=== PATIENT | male | born 1945 | race Caucasian/White ===

== ENCOUNTER 2017-02-28 10:16 | Emergency (ER) | payer OTHER ==
[~2017-02-28] VITALS: Wt 77.1 kg
[~2017-02-28 10:16] MED LIST: CIPROFLOXACIN500 MG PO; FLAGYL500 M1 IV; FLEXERIL10 MG PO; KEFLEX500 MG PO; NEURONTIN300 MG PO; TRAMADOL HCL50 MG PO; VICODIN 5/500 505 MG PO
[2017-02-28] MEDS ORDERED: LISINOPRIL10 M1 PO (10:25)
[2017-02-28] MEDS ORDERED: ZOFRAN ODT4 MG SL (12:11)
[2017-02-28 12:20] VITALS: BP 143/78
== END 2017-02-28 12:30 | disposition home or self-care (01) ==
LOC: ED 10:16
DX: R11.0 Nausea (principal); R63.0 Anorexia; F41.9 Anxiety disorder, unspecified; R42 Dizziness and giddiness; R19.7 Diarrhea, unspecified; I10 Essential (primary) hypertension; R07.89 Other chest pain; F17.200 Nicotine dependence, unspecified, uncomplicated; Z79.899 Other long term (current) drug therapy

== ENCOUNTER 2017-03-04 10:40 | Inpatient (IN) | payer OTHER ==
[~2017-03-04] VITALS: Ht 170.2 cm; Wt 77.1 kg
--- NOTE | ~2017-03-04 | CON ---
[place], [place] REPORT OF CONSULTATION NAME: LARRY MCCOY UNIT #: [id number] ROOM: 506 DOCTOR: EPHRAIM WHITT BIRTHDATE: [birth year] DOS: 03/06/2017 HISTORY OF PRESENT ILLNESS: This is a 71-year-old male who presents to the Emergency Department complaining of anxiety and depression and being overly nervous, worsening over the last couple of weeks, stating he is waking up "feeling sweaty, feeling lightheaded almost passed out, headaches, blurred vision, anxiety, nervousness, tremors, loss of appetite." He denies fevers and chills. He was admitted to the floor to rule out medical. PAST MEDICAL HISTORY: Diabetes, hypertension, neuropathy. MENTAL STATUS: He is alert and oriented to person, place, time. Mood fairly euthymic with some underlying anxiety. Affect was appropriate. No overt signs of auditory or visual hallucinations, delusions or paranoia. My only concern is when I started talking to him about medications and stuff, he says "well I am not going to get it." When I asked him why he says because it is illegal. And I said why did he thinks it was illegal, and he could not tell me, but he knew it was not an illegal drug, but then he was trying to pronounce it and I think he was saying Remeron, which we had switched him to, to help with sleep, depression and appetite and then he said that he ____ changes anything significant, he said no, but then he said that he was worried about being able to afford his meds, getting them paid for, getting them prescribed. He said in the last week or so, he was being told by his doctors that they are no longer going to be able to give him and I think he said pain meds, so I am kind of wondering if this is weighing heavy on him because of his neuropathy, is he addicted to pain meds because he was on pain meds before or is he just afraid that his doctor is going to cut him off, because his statement was "I was told that they could not prescribe those for me anymore", but he could not remember the name of the medication and I do not seeing anything other than Ultram and Neurontin right now reported. He was on Paxil when he was admitted for depression and anxiety, this got switched to Celexa, it did not have any benefit. We switched him last night to Remeron 15 mg at bedtime, so this low dose help him not only with depression, but help with sleep and stimulate his appetite. He did state that he slept really good last night. He woke up with fairly decent appetite and he was eating his breakfast. With regards to his neuropathy, I talked to him about Cymbalta, he said he was on it in the past and he thought it was effective, but he could not remember. DIAGNOSES: Depression with underlying anxiety. Dr. [place] had talk to Dr. Squires about this gentleman. He said that he would be able squeeze him in on Wednesday, if we decide to discharge in the next day or two. Overall, he has been good. He had good sleep last night, good appetite. No side effects from the medications. PLAN: I am going to start him on Cymbalta 30 mg every day with the plan to titrate him up to a higher dose not only help with depression and anxiety, but help him with some of his neuropathy pain. We will continue the Remeron for now because of his sleeping and so disturbing his anxiety and then I will follow up with Dr. [place] with regards to if there are some other kind of medication that he is concerned about not being prescribed for him anymore. This seems to be [place], [place] REPORT OF CONSULTATION NAME: LARRY MCCOY UNIT #: [id number] ROOM: 506 DOCTOR: EPHRAIM WHITT BIRTHDATE: [birth year] his focus that he is now able to keep his pain under control because the meds are going to be prescribed and we can go from there. I think he is stable to go home. He wants to go home and then follow up with Dr. Squires in his office on Wednesday. ELIOT WHITT CNP CM:CONSTR:REPORT OF CONSULTATION 1157 03/07/17 0432 interface
[~2017-03-04 10:40] MED LIST changes: +LISINOPRIL10 M1 PO; +ZOFRAN ODT4 MG SL
[2017-03-04 10:44] VITALS: BP 175/77
[2017-03-04 11:09] LABS: BASO # 0.1 10*3/uL (0.0-0.1); BASO % 0.5 % (0.0-1.0); EOS % 0.3 % (1.0-4.0); HEMATOCRIT 45.7 % (42.0-52.0); HEMOGLOBIN 15.6 g/dl (14.0-18.0); LYMPH # 1.7 10*3/uL (1.3-4.4); LYMPH % 14.7 % (27.0-41.0); MEAN CELL VOLUME 91.2 fl (80.0-94.0); MEAN CORPUSCULAR HGB 31.1 pg (27.0-31.0); MEAN CORPUSCULAR HGB CONC 34.1 g/dl (33.0-37.0); MEAN PLATELET VOLUME 10.7 fl (9.6-12.3); MONO # 0.5 10*3/uL (0.1-1.0); MONO % 4.2 % (3.0-9.0); NEUT # 9.3 10*3/uL (2.3-7.9); NEUT % 79.8 % (47.0-73.0); PLATELET COUNT AUTOMATED 284 10*3/uL (130-400); RED BLOOD COUNT 5.01 10*6/uL (4.50-5.90); RED CELL DISTRI WIDTH 13.3 % (0-14.5); WHITE BLOOD COUNT 11.7 10*3/uL (4.8-10.8)
[2017-03-04 11:25] LABS: ALBUMIN 3.8 gm/dl (3.1-4.5); ALKALINE PHOSPHATASE 74 U/L (45-117); BUN 9 mg/dl (7-24); CHLORIDE 104 mmol/L (98-107); LIPASE 181 U/L (73-393); SGOT/AST 14 IU/L (3-35); SGPT/ALT 22 U/L (12-78); SODIUM 139 mmol/L (136-145)
[2017-03-04 11:27] LABS: BILIRUBIN NEGATIVE (NEGATIVE); BLOOD NEGATIVE (NEGATIVE); CLARITY CLEAR (CLEAR); COLOR YELLOW (YELLOW); GLUCOSE 2+ (NEGATIVE); KETONE NEGATIVE (NEGATIVE); LEUKO ESTERASE NEGATIVE (NEGATIVE); NITRITE NEGATIVE (NEGATIVE); UROBILINOGEN 0.2 E.U./dl (0.2-1.0)
[2017-03-04 11:33] LABS: RBC 0-2 rbc/hpf (0-2)
--- NOTE | 2017-03-04 14:06 | NUR ---
PT HAS SIGNED AMA. HE IS STATING "IM JUST GOING HOME TO TAKE CARE OF MY ANIMALS AND I WILL BE RIGHT BACK" HE HAS SIGNED THE CHART. DR LANDRY IS AWARE OF THIS. NARDA ROA RN
[2017-03-04 14:45] VITALS: BP 151/7; BP 151/77
--- NOTE | 2017-03-04 14:58 | NUR ---
PT STATING UPON RETURN.."DO THEY ANY MORE ATIVAN FOR ME?", PT W/O DISTRESS NOTED WITH FAMILY @ BEDSIDE.NO COMPLAINTS VOICED.
[2017-03-04 15:30] VITALS: BP 158/89
--- NOTE | 2017-03-04 15:30 | NUR ---
A 71, admitted to , under the services of KIMBERLY Forrester DO with a diagnosis of ELEVATED BP Chief complaint is ANXIETY. Patient arrived via ambulatory from ER. Monitor applied. Initial assessment completed. Vital signs taken and recorded. KIMBERLY FORRESTER DO notified of admission to the unit. Orders received. See assessment for past medical history, medications and allergies. Patient and/or family oriented to unit. [facility] visitation policy reviewed. Clothing/patient valuable form completed. RUSS DUNLAP
--- NOTE | 2017-03-04 16:20 | NUR ---
MED REC UPDATED VIA MEDICATION LIST FROM VENKATAE SANGEETA.
[2017-03-04] MEDS ORDERED: OMEPRAZOLE40 MG PO (16:22)
[2017-03-04] MEDS ORDERED: PAXIL10 MG PO (16:26)
[2017-03-04] MEDS ORDERED: FENOGLIDE40 MG PO (16:26)
[2017-03-04 16:34] LABS: FREE T4 1.08 ng/dl (0.76-1.46)
[2017-03-04 16:38] LABS: THYROID STIM HORMONE (HS) 0.46 uIU/ml (0.358-4.75)
--- NOTE | 2017-03-04 18:00 | NUR ---
MEDICATED WITH PRN ATIVAN ORDERED FOR C/O ANXIETY. PATIENT IS PLEASANT/COOPERATIVE WITH CARE. FLUIDS MAINTAINED PER ORDER. WILL MONITOR.
[2017-03-04 20:00] VITALS: BP 138/65
[2017-03-04 20:38] LABS: BILIRUBIN NEGATIVE (NEGATIVE); BLOOD NEGATIVE (NEGATIVE); CLARITY CLEAR (CLEAR); COLOR YELLOW (YELLOW); GLUCOSE NEGATIVE (NEGATIVE); KETONE TRACE (NEGATIVE); LEUKO ESTERASE NEGATIVE (NEGATIVE); NITRITE NEGATIVE (NEGATIVE); SPECIFIC GRAVITY <= 1.005 (1.005-1.030); UROBILINOGEN 0.2 E.U./dl (0.2-1.0)
[2017-03-04 20:51] LABS: BACTERIA TRACE; EPITHELIAL CELLS 0-2; RBC 0-2 rbc/hpf (0-2)
[2017-03-05] VITALS: BP 130/77
--- NOTE | 2017-03-05 04:45 | NUR ---
[facility] REFER TO PAPER MAR AND WRITTEN PROGRESS NOTES.
[2017-03-05 07:02] LABS: BASO # 0.1 10*3/uL (0.0-0.1); BASO % 0.5 % (0.0-1.0); EOS # 0.1 10*3/uL (0.0-0.4); EOS % 1.1 % (1.0-4.0); HEMATOCRIT 43.3 % (42.0-52.0); HEMOGLOBIN 14.8 g/dl (14.0-18.0); LYMPH # 1.9 10*3/uL (1.3-4.4); LYMPH % 19.1 % (27.0-41.0); MEAN CELL VOLUME 92.5 fl (80.0-94.0); MEAN CORPUSCULAR HGB 31.6 pg (27.0-31.0); MEAN CORPUSCULAR HGB CONC 34.2 g/dl (33.0-37.0); MEAN PLATELET VOLUME 10.7 fl (9.6-12.3); MONO # 0.6 10*3/uL (0.1-1.0); MONO % 5.7 % (3.0-9.0); NEUT # 7.4 10*3/uL (2.3-7.9); NEUT % 73.2 % (47.0-73.0); PLATELET COUNT AUTOMATED 231 10*3/uL (130-400); RED BLOOD COUNT 4.68 10*6/uL (4.50-5.90); RED CELL DISTRI WIDTH 13.5 % (0-14.5); WHITE BLOOD COUNT 10.1 10*3/uL (4.8-10.8)
[2017-03-05 07:34] LABS: ACT PARTIAL THROMBO TIME 27.2 SECONDS (20.8-31.5)
[2017-03-05 07:36] LABS: ALBUMIN 3.3 gm/dl (3.1-4.5); BUN 7 mg/dl (7-24); CHLORIDE 107 mmol/L (98-107); CHOLESTEROL 150 mg/dL (<200); CREATININE 0.89 mg/dL (0.70-1.30); MAGNESIUM 2.3 mg/dL (1.5-2.1); PHOSPHOROUS 2.8 mg/dL (2.5-4.9); SGOT/AST 15 IU/L (3-35); SGPT/ALT 21 U/L (12-78); SODIUM 140 mmol/L (136-145); TOTAL PROTEIN 6.3 gm/dL (6.4-8.2)
[2017-03-05 07:37] LABS: ALKALINE PHOSPHATASE 63 U/L (45-117); HDL CHOLESTEROL 44 mg/dl (40-60); LDL CHOLESTEROL 74 mg/dL (9-159); TRIGLYCERIDES 160 mg/dl (<150); VLDL CHOLESTEROL 32 mg/dL (6-40)
--- NOTE | 2017-03-05 07:38 | NUR ---
PT COMPLAINS OF ANXIETY, PRN ATIVAN GIVEN. SEE MAR. WILL MONITOR FOR EFFECTIVENESS
[2017-03-05 07:58] LABS: VITAMIN D, 25-HYDROXY 30.3 ng/mL (30-100)
[2017-03-05 08:00] VITALS: BP 133/80
[2017-03-05 08:37] LABS: URINE AMPHETAMINES < 1000 (1000ng/ml); URINE BARBITURATES < 200 (200ng/ml); URINE BENZODIAZEPINES < 200 (200ng/ml); URINE CANNABINOIDS (THC) < 50 (50ng/ml); URINE COCAINE < 300 (300ng/ml); URINE METHADONE < 300 (300ng/ml); URINE OPIATES < 300 (300ng/ml)
[2017-03-05 08:38] LABS: URINE PHENCYCLIDINE < 25 (25ng/ml)
--- NOTE | 2017-03-05 08:40 | NUR ---
PT STATES ATIVAN HELPED, NO NEEDS STATED AT THIS TIME
--- NOTE | 2017-03-05 09:00 | NUR ---
Drop Forger Helper in to talk to patient. Patient states lives at home with family. There are few steps in the home. Physician: ted dwyer [facility]acy: [facility] Home health services: none Patient's level of ADLs: INDEPENDENT Patient has working utilities: all working DME: none Follow-up physician's appointment after d/c: will be made by hospitalist nurse director upon discharge Does patient want to access PORTAL?: no Discharge plan discussed with patient, patient lives at home, is independen tin adls and ambulation, works, drives, patient denies any home needs. SUMAN MALONE
[2017-03-05 12:00] VITALS: BP 151/80
--- NOTE | 2017-03-05 13:42 | NUR ---
PT COMPLAINS OF ANXIETY, VISTARIL GIVEN. SEE MAR. WILL MONITOR FOR EFFECTIVENESS.
[2017-03-05 16:00] VITALS: BP 132/58
--- NOTE | 2017-03-05 16:28 | NUR ---
Shift chart check completed.
[2017-03-05 20:00] VITALS: BP 136/69
--- NOTE | 2017-03-05 20:00 | NUR ---
AAOX3 RESTING IN BED. SKIN PALE, WARM & DRY. LUNGS DIMINISHED BILATERALLY WITH NO COUGH NOTED AT THIS TIME. TRACE ANKLE EDEMA NOTED. PT. VOICES NO C/O AT THIS TIME. CALL LIGHT WITHIN REACH.
--- NOTE | 2017-03-05 22:00 | NUR ---
BLOOD SUGAR 121; NO COVERAGE REQUIRED.
[2017-03-06] VITALS: BP 136/69
--- NOTE | 2017-03-06 00:57 | NUR ---
IN BED RESTING QUIETLY. NO S/S OF DISTRESS. WILL CONT TO MONITOR. CALL LIGHT IN REACH. SEE ASSESS.
--- NOTE | 2017-03-06 04:29 | NUR ---
PT UP TO RR AND HR WENT UP INTO 120'S. HR RETURNED TO 70'S AT REST. WILL CONT TO MONITOR
--- NOTE | 2017-03-06 05:00 | NUR ---
DR PAINTER NOTIFIED THAT PT HR ELEVATED WHEN AMBULATING TO RR.
--- NOTE | 2017-03-06 06:35 | NUR ---
ZOFRAN GIVEN FOR C/O NAUSEA AT THIS TIME. WILL CONT TO MONITOR.
[2017-03-06 07:02] LABS: BASO # 0.1 10*3/uL (0.0-0.1); BASO % 0.6 % (0.0-1.0); EOS # 0.1 10*3/uL (0.0-0.4); EOS % 1.1 % (1.0-4.0); HEMATOCRIT 44.3 % (42.0-52.0); HEMOGLOBIN 14.9 g/dl (14.0-18.0); LYMPH % 19.7 % (27.0-41.0); MEAN CELL VOLUME 91.7 fl (80.0-94.0); MEAN CORPUSCULAR HGB 30.8 pg (27.0-31.0); MEAN CORPUSCULAR HGB CONC 33.6 g/dl (33.0-37.0); MEAN PLATELET VOLUME 11.5 fl (9.6-12.3); MONO # 0.6 10*3/uL (0.1-1.0); MONO % 6.2 % (3.0-9.0); NEUT # 7.2 10*3/uL (2.3-7.9); NEUT % 71.9 % (47.0-73.0); PLATELET COUNT AUTOMATED 230 10*3/uL (130-400); RED BLOOD COUNT 4.83 10*6/uL (4.50-5.90); RED CELL DISTRI WIDTH 13.4 % (0-14.5)
[2017-03-06 07:34] LABS: BUN 10 mg/dl (7-24); CHLORIDE 108 mmol/L (98-107); CREATININE 0.98 mg/dL (0.70-1.30); POTASSIUM 3.7 mmol/L (3.5-5.1); SODIUM 143 mmol/L (136-145)
[2017-03-06 07:57] VITALS: BP 140/71
--- NOTE | 2017-03-06 08:10 | NUR ---
PATIENT REQUESTED PO ATIVAN AND PO ULTRAM PER PRN ORDER FOR C/O ANXIETY AND BILATERAL FEET PAIN. RATES PAIN 02/11. WILL MONITOR EFFECTIVENESS. VSS. CALL LIGHT WITHIN REACH.
--- NOTE | 2017-03-06 09:19 | NUR ---
EARLIER MEDICATIONS EFFECTIVE PER PT. WILL CONTINUE TO MONITOR.
--- NOTE | 2017-03-06 11:52 | NUR ---
ELIOT WHITT SENIOR JAVA UI DEVELOPER IN TO SEE PATIENT REGARDING CONSULT.
[2017-03-06 11:53] VITALS: BP 134/66
[2017-03-06] MEDS ORDERED: ATIVAN0.5 MG PO (13:29)
[2017-03-06] MEDS ORDERED: LISINOPRIL20 MG PO (13:29)
[2017-03-06] MEDS ORDERED: MIRTAZAPINE15 M2 PO (13:29)
[2017-03-06] MEDS ORDERED: DULOXETINE HCL30 MG PO (13:29)
--- NOTE | 2017-03-06 14:21 | NUR ---
Discharge instructions reviewed with patient/family. Patient receptive and verbalizes understanding. Follow-up care arranged. Written instructions given to patient/family. TUAN PEREZ.
== END 2017-03-06 14:25 | disposition home or self-care (01) | DRG 312 ==
LOC: ED 10:40 → EDHOLD 13:46 → ED 13:46 → 4E 13:46 → EDHOLD 13:56 → ED 14:11 → 5E 14:41
PROVIDERS: Family Medicine; Internal Medicine; Nurse Practitioner; Student in an Organized Health Care Education/Training Program; ADMIT Internal Medicine
DX: R55 Syncope and collapse (principal); E11.42 Type 2 diabetes mellitus with diabetic polyneuropathy; I10 Essential (primary) hypertension; R63.0 Anorexia; R11.0 Nausea; R81 Glycosuria; R61 Generalized hyperhidrosis; R42 Dizziness and giddiness; H53.8 Other visual disturbances; R51 Headache; R00.0 Tachycardia, unspecified; E11.65 Type 2 diabetes mellitus with hyperglycemia; D72.829 Elevated white blood cell count, unspecified; F41.8 Other specified anxiety disorders; R25.1 Tremor, unspecified; Z72.0 Tobacco use; Z90.49 Acquired absence of other specified parts of digestive tract; Z71.6 Tobacco abuse counseling; Z82.49 Family history of ischemic heart disease and other diseases of the circulatory system; Z79.899 Other long term (current) drug therapy

== ENCOUNTER → 2020-05-02 | Outpatient (CLI) | payer MEDICARE ==
[~2020-05-02] MED LIST changes: +ATIVAN0.5 MG PO; +DULOXETINE HCL30 MG PO; +FENOGLIDE40 MG PO; +LISINOPRIL20 MG PO; +METFOMIN HYDRO850 MG PO; +MIRTAZAPINE15 M2 PO; +OMEPRAZOLE40 MG PO; +PAXIL10 MG PO; +TYLENOL W/ CODE30 ML PO
== END | disposition home or self-care (01) ==
LOC: COVID19 04:56
PROVIDERS: ATTEND Nurse Practitioner Primary Care
DX: R05 Cough (principal); R50.9 Fever, unspecified; Z20.828 Contact with and (suspected) exposure to other viral communicable diseases

== ENCOUNTER → 2021-02-26 | Outpatient (CLI) | payer MEDICARE | END | disposition home or self-care (01) | LOC: RESCLI 00:17 | PROVIDERS: ATTEND Internal Medicine Nephrology | DX: I10 Essential (primary) hypertension (principal); E11.42 Type 2 diabetes mellitus with diabetic polyneuropathy; E55.9 Vitamin D deficiency, unspecified; E78.2 Mixed hyperlipidemia; F33.1 Major depressive disorder, recurrent, moderate; R11.0 Nausea; R63.0 Anorexia; F41.0 Panic disorder [episodic paroxysmal anxiety]; J30.1 Allergic rhinitis due to pollen; E11.9 Type 2 diabetes mellitus without complications; G89.29 Other chronic pain; Z72.0 Tobacco use; Z79.899 Other long term (current) drug therapy; Z90.49 Acquired absence of other specified parts of digestive tract ==

== ENCOUNTER → 2021-05-19 | Outpatient (CLI) | payer MEDICARE | END | disposition home or self-care (01) | LOC: US 13:30 | PROVIDERS: ATTEND Nurse Practitioner Primary Care | DX: I70.203 Unspecified atherosclerosis of native arteries of extremities, bilateral legs (principal) ==

== ENCOUNTER → 2022-04-27 | Outpatient (CLI) | payer MEDICARE | END | disposition home or self-care (01) | LOC: RESCLI 02:02 | PROVIDERS: ATTEND Internal Medicine | DX: E11.42 Type 2 diabetes mellitus with diabetic polyneuropathy (principal); F33.41 Major depressive disorder, recurrent, in partial remission; F41.1 Generalized anxiety disorder; E55.9 Vitamin D deficiency, unspecified; K21.9 Gastro-esophageal reflux disease without esophagitis; J30.1 Allergic rhinitis due to pollen; E78.2 Mixed hyperlipidemia; I10 Essential (primary) hypertension; E56.9 Vitamin deficiency, unspecified; F17.200 Nicotine dependence, unspecified, uncomplicated; Z90.49 Acquired absence of other specified parts of digestive tract; Z98.890 Other specified postprocedural states; Z82.49 Family history of ischemic heart disease and other diseases of the circulatory system; Z79.899 Other long term (current) drug therapy ==

== ENCOUNTER → 2023-11-30 | Outpatient (CLI) | payer MEDICARE | END | disposition home or self-care (01) | LOC: RESCLI 00:52 | PROVIDERS: ATTEND Internal Medicine | DX: E11.9 Type 2 diabetes mellitus without complications (principal); I10 Essential (primary) hypertension; E78.5 Hyperlipidemia, unspecified; G62.9 Polyneuropathy, unspecified; F41.9 Anxiety disorder, unspecified; J30.1 Allergic rhinitis due to pollen; E11.42 Type 2 diabetes mellitus with diabetic polyneuropathy; E78.2 Mixed hyperlipidemia; E55.9 Vitamin D deficiency, unspecified; K21.9 Gastro-esophageal reflux disease without esophagitis; E56.9 Vitamin deficiency, unspecified; R52 Pain, unspecified; R33.9 Retention of urine, unspecified; F41.1 Generalized anxiety disorder; R06.2 Wheezing; Z79.899 Other long term (current) drug therapy; Z98.890 Other specified postprocedural states; Z82.49 Family history of ischemic heart disease and other diseases of the circulatory system ==